=== PATIENT | female | born 1945 | race Caucasian/White ===

== ENCOUNTER → 2018-03-16 | Outpatient (CLI) | payer MEDICARE, MEDICAID | LOC: M CARPUL 17:01 | DX: R06.02 Shortness of breath (principal); R94.2 Abnormal results of pulmonary function studies | CPT/HCPCS: 94010 ==

== ENCOUNTER 2018-05-31 10:30 | Day surgery (SDC) | payer MEDICARE, MEDICAID ==
[2018-05-31] MEDS: NS 1,000 ML IV (10:45)
[2018-05-31] MEDS ORDERED: PROPOFOL 200 MG/20 ML VIAL As Ordered (12:08)
[2018-05-31] MEDS ORDERED: METOPROLOL TART 25 MG TABLET As Ordered (12:16)
[2018-05-31] MEDS: METOPROLOL TART 25 MG TABLET PO (12:19)
== END 2018-05-31 13:55 | disposition home or self-care (01) ==
LOC: M OPP 10:30
DX: D50.9 Iron deficiency anemia, unspecified (principal); D12.4 Benign neoplasm of descending colon; D12.3 Benign neoplasm of transverse colon; D12.2 Benign neoplasm of ascending colon; K57.30 Diverticulosis of large intestine without perforation or abscess without bleeding; I10 Essential (primary) hypertension; E78.5 Hyperlipidemia, unspecified; E11.9 Type 2 diabetes mellitus without complications; K57.32 Diverticulitis of large intestine without perforation or abscess without bleeding; K21.9 Gastro-esophageal reflux disease without esophagitis; R12 Heartburn; M19.90 Unspecified osteoarthritis, unspecified site; L71.9 Rosacea, unspecified; Z78.0 Asymptomatic menopausal state; J45.909 Unspecified asthma, uncomplicated; J44.9 Chronic obstructive pulmonary disease, unspecified; Z88.8 Allergy status to other drugs, medicaments and biological substances; Z79.82 Long term (current) use of aspirin; Z79.899 Other long term (current) drug therapy; Z79.4 Long term (current) use of insulin
CPT/HCPCS: 45385

== ENCOUNTER → 2018-06-09 | Outpatient (CLI) | payer MEDICARE, MEDICAID ==
[~2018-06-09] MED LIST: E-Z-PAQUE 96% w/w SUSP 176GM BTL As Ordered
== END ==
LOC: M RAD 07:48
DX: D50.9 Iron deficiency anemia, unspecified (principal)
CPT/HCPCS: 74250

== ENCOUNTER 2020-12-06 11:03 | Inpatient (IN) | payer MEDICARE, MEDICAID ==
[~2020-12-06] VITALS: Ht 157.5 cm; Wt 80.0 kg
[~2020-12-06 11:03] MED LIST changes: +ADVA45AE INH; +AMLO2.5T3 PO; +ASPI81TA86 PO; +CALC1TAB19 PO; +CALC600T60 PO; -E-Z-PAQUE 96% w/w SUSP 176GM BTL As Ordered; +ESOM1CAP5 PO; +FERR325T3 PO; +FURO40TA2 PO; +GLIP10TA6 PO; +JANU100T PO; +LOSA25TA14 PO; +METF10004 PO; +METO100T5 PO; +METRCRM EXT; +ROSU5TAB5 PO; +TOUJ1.2I SC; +VITA100018 PO
--- OUTSIDE RECORDS SUMMARY | 2020-12-06 11:14 | CCD ---
Author Author [facility] Organization [facility] Address Unknown Phone Unavailable Support Name Relationship Address Phone RE Next Of Kin Unknown Unavailable UE Next Of Kin Unknown Unavailable ANUPAMCharissa EDWARD Next Of Kin [address] [place], [place] [id number] JAK Bo ECON Unknown Unavailable Re-disclosure Warning The records that you are about to access may contain information from federally-assisted alcohol or drug abuse programs. If such information is present, then the following federally mandated warning applies: This information has been disclosed to you from records protected by federal confidentiality rules (42 CFR part 2). The federal rules prohibit you from making any further disclosure of this information unless further disclosure is expressly permitted by the written consent of the person to whom it pertains or as otherwise permitted by 42 CFR part 2. A general authorization for the release of medical or other information is NOT sufficient for this purpose. The Federal rules restrict any use of the information to criminally investigate or prosecute any alcohol or drug abuse patient.The records that you are about to access may contain highly sensitive health information, the redisclosure of which is protected by Article 27-F of the [facility] Public Health law. If you continue you may have access to information: Regarding HIV / AIDS; Provided by facilities licensed or operated by the [facility] Office of Mental Health; or Provided by the [facility] Office for People With Developmental Disabilities. If such information is present, then the following [facility] mandated warning applies: This information has been disclosed to you from confidential records which are protected by state law. State law prohibits you from making any further disclosure of this information without the specific written consent of the person to whom it pertains, or as otherwise permitted by law. Any unauthorized further disclosure in violation of state law may result in a fine or long term sentence or both. A general authorization for the release of medical or other information is NOT sufficient authorization for further disc losure. Family History Family Member Name Family Member Gender Family Member Status Date o f Status Description Data Source(s) Unknown Unknown Problem MEDENT ([facility], ) sister Dx age 75 and again age 81 Immunizations Vaccine Date Status Description Data Source(s) INFLUENZA VACCINE QUADRIVALENT (65 YR UP)/MF59 C.1/PF 08/10/2020 12:00:00 AM EDT completed [facility] Medications Medication Brand Name Start Date Product Form Dose Route Admi nistrative Instructions Pharmacy Instructions Status Indications Reaction Description Data Source(s) 100 mg 11/14/2020 12:00:00 AM EST tablet 90 TAKE ONE TABLET BY MOUTH EVERY DAY TAKE ONE TABLET BY MOUTH EVERY DAY SOLD: 11/16/2020 [facility] BLOOD SUGAR DIAGNOSTIC 10/30/2020 12:00:00 AM EST strip 200 TEST TWO TIMES A DAY DIRECTED TEST TWO TIMES A DAY DIRECTED SOLD: 10/31/2020 [facility] ALCOHOL ANTISEPTIC PADS 10/30/2020 12:00:00 AM EST pads, med icated 100 USE DIRECTED TWO TIMES A DAY USE DIRECTED TWO TIMES A DAY SOLD: 10/31/2020 [facility] 10 mg 10/29/2020 12:00:00 AM EST tablet extended release 24hr 180 TAKE ONE TABLET BY MOUTH TWICE A DAY TAKE ONE TABLET BY MOUTH TWICE A DAY SOLD: 10/31/2020 [facility] LANCETS 09/28/2020 12:00:00 AM EST misc 100 TEST TWO TIMES A DAY TEST TWO TIMES A DAY SOLD: 09/30/2020 [facility] LANCETS 09/28/2020 12:00:00 AM EST misc 100 TEST TWO TIMES A DAY TEST TWO TIMES A DAY SOLD: 11/16/2020 [facility] 40 mg 09/17/2020 12:00:00 AM EST tablet 90 TAKE ONE TABLET BY MOUTH EVERY DAY TAKE ONE TABLET BY MOUTH EVERY DAY SOLD: 09/20/2020 [facility] 5 mg 09/17/2020 12:00:00 AM EST tablet 90 TAKE ONE TABLET BY MOUTH EVERY DAY TAKE ONE TABLET BY MOUTH EVERY DAY SOLD: 09/20/2020 [facility] Esomeprazole 40 MG Delayed Release Oral Capsule ESOMEPRAZOLE MAGNESIUM 09/17/2020 12:00:00 AM EST capsule,delayed release(DR/EC) 90 TAKE ONE CAPSULE BY MOUTH EVERY DAY TAKE ONE CAPSULE BY MOUTH EVERY DAY SOLD: 09/20/2020 [facility] 25 mg 08/02/2020 12:00:00 AM EDT tablet 90 TAKE ONE TABLET BY MOUTH EVERY DAY TAKE ONE TABLET BY MOUTH EVERY DAY SOLD: 10/31/2020 [facility] 25 mg 08/02/2020 12:00:00 AM EDT tablet 90 TAKE ONE TABLET BY MOUTH EVERY DAY TAKE ONE TABLET BY MOUTH EVERY DAY SOLD: 08/04/2020 [facility] 325 mg (65 mg iron) 08/02/2020 12:00:00 AM EDT tablet, delayed release (DR/EC) 90 TAKE ONE TABLET BY MOUTH EVERY DAY TAKE ONE TABL ET BY MOUTH EVERY DAY SOLD: 10/31/2020 [facility] 325 mg (65 mg iron) 08/02/2020 12:00:00 AM EDT tablet, delayed release (DR/EC) 90 TAKE ONE TABLET BY MOUTH EVERY DAY TAKE ONE TABL ET BY MOUTH EVERY DAY SOLD: 08/04/2020 [facility] Metformin hydrochloride 1000 MG Oral Tablet 1,000 mg METFORM IN HCL 07/24/2020 12:00:00 AM EDT tablet 180 TAKE ONE TABLET BY MOUTH TWICE A DAY TAKE ONE TABLET BY MOUTH TWICE A DAY SOLD: 07/27/2020 [facility] 100 mg 07/24/2020 12:00:00 AM EDT tablet 180 TAKE ONE TABLET BY MOUTH TWICE A DAY TAKE ONE TABLET BY MOUTH TWICE A DAY SOLD: 10/23/2020 [facility] 100 mg 07/24/2020 12:00:00 AM EDT tablet 180 TAKE ONE TABLET BY MOUTH TWICE A DAY TAKE ONE TABLET BY MOUTH TWICE A DAY SOLD: 07/27/2020 [facility] Metformin hydrochloride 1000 MG Oral Tablet 1,000 mg METFORM IN HCL 07/24/2020 12:00:00 AM EDT tablet 180 TAKE ONE TABLET BY MOUTH TWICE A DAY TAKE ONE TABLET BY MOUTH TWICE A DAY SOLD: 10/23/2020 [facility] 2.5 mg 07/18/2020 12:00:00 AM EDT tablet 90 TAKE ONE TABLET BY MOUTH EVERY DAY TAKE ONE TABLET BY MOUTH EVERY DAY SOLD: 10/23/2020 [facility] 2.5 mg 07/18/2020 12:00:00 AM EDT tablet 90 TAKE ONE TABLET BY MOUTH EVERY DAY TAKE ONE TABLET BY MOUTH EVERY DAY SOLD: 07/19/2020 [facility] 115-21 mcg/actuation 06/18/2020 12:00:00 AM EDT HFA aerosol inhaler 36 INHALE TWO PUFFS BY MOUTH TWICE A DAY INHALE TWO PUFFS BY MOUTH TWICE A DAY SOLD: 06/21/2020 [facility] 115-21 mcg/actuation 06/18/2020 12:00:00 AM EDT HFA aerosol inhaler 36 INHALE TWO PUFFS BY MOUTH TWICE A DAY INHALE TWO PUFFS BY MOUTH TWICE A DAY SOLD: 10/09/2020 [facility] 100 mg 05/22/2020 12:00:00 AM EDT tablet 90 TAKE ONE TABLET BY MOUTH EVERY DAY TAKE ONE TABLET BY MOUTH EVERY DAY SOLD: 05/23/2020 [facility] 100 mg 05/22/2020 12:00:00 AM EDT tablet 90 TAKE ONE TABLET BY MOUTH EVERY DAY TAKE ONE TABLET BY MOUTH EVERY DAY SOLD: 08/21/2020 [facility] 300 unit/mL (1.5 mL) 05/11/2020 12:00:00 AM EDT insulin pen 4 INJECT 10 UNITS UNDER THE SKIN AT BEDTIME INJECT 10 UNITS UNDER THE SKIN AT BEDTIME SOLD: 09/11/2020 [facility] 300 unit/mL (1.5 mL) 05/11/2020 12:00:00 AM EDT insulin pen 4 INJECT 10 UNITS UNDER THE SKIN AT BEDTIME INJECT 10 UNITS UNDER THE SKIN AT BEDTIME SOLD: 05/13/2020 [facility] 10 mg 05/01/2020 12:00:00 AM EDT tablet extended release 24hr 180 TAKE ONE TABLET BY MOUTH TWICE A DAY TAKE ONE TABLET BY MOUTH TWICE A DAY SOLD: 08/04/2020 [facility] 10 mg 05/01/2020 12:00:00 AM EDT tablet extended release 24hr 180 TAKE ONE TABLET BY MOUTH TWICE A DAY TAKE ONE TABLET BY MOUTH TWICE A DAY SOLD: 05/02/2020 [facility] BLOOD SUGAR DIAGNOSTIC 04/10/2020 12:00:00 AM EDT strip 200 TEST TWO TIMES A DAY DIRECTED TEST TWO TIMES A DAY DIRECTED SOLD: 07/19/2020 [facility] BLOOD SUGAR DIAGNOSTIC 04/10/2020 12:00:00 AM EDT strip 200 TEST TWO TIMES A DAY DIRECTED TEST TWO TIMES A DAY DIRECTED SOLD: 04/11/2020 [facility] Esomeprazole 40 MG Delayed Release Oral Capsule ESOMEPRAZOLE MAGNESIUM 03/19/2020 12:00:00 AM EDT capsule,delayed release(DR/EC) 90 TAKE ONE CAPSULE BY MOUTH EVERY DAY TAKE ONE CAPSULE BY MOUTH EVERY DAY SOLD: 06/21/2020 [facility] 5 mg 03/19/2020 12:00:00 AM EDT tablet 90 TAKE ONE TABLET BY MOUTH EVERY DAY TAKE ONE TABLET BY MOUTH EVERY DAY SOLD: 03/20/2020 [facility] Rosuvastatin calcium 5 MG Oral Tablet ROSUVASTATIN CALCIUM 0 03/19/2020 12:00:00 AM EDT tablet 90 TAKE ONE TABLET BY MOUTH [place] DAY TAKE ONE TABLET BY MOUTH EVERY DAY SOLD: 06/21/2020 [facility] 40 mg 03/19/2020 12:00:00 AM EDT capsule,delayed release (DR/EC) 90 TAKE ONE CAPSULE BY MOUTH EVERY DAY TAKE ONE CAPSULE BY MOUTH EVERY DAY SOLD: 03/20/2020 [facility] 40 mg 03/19/2020 12:00:00 AM EDT tablet 90 TAKE ONE TABLET BY MOUTH EVERY DAY TAKE ONE TABLET BY MOUTH EVERY DAY SOLD: 03/20/2020 [facility] 40 mg 03/19/2020 12:00:00 AM EDT tablet 90 TAKE ONE TABLET BY MOUTH EVERY DAY TAKE ONE TABLET BY MOUTH EVERY DAY SOLD: 06/21/2020 [facility] 03/05/2020 12:00:00 AM EDT misc 200 TEST TWO TIMES A DAY DIRECTED TEST TWO TIMES A DAY DIRECTED SOLD: 06/21/2020 [facility] LANCETS 03/05/2020 12:00:00 AM EDT misc 200 TEST TWO TIMES A DAY DIRECTED TEST TWO TIMES A DAY DIRECTED SOLD: 03/06/2020 [facility] 32 gauge x 5/32" 02/06/2020 12:00:00 AM EDT needle 100 USE DIRECTED ONCE DAILY USE DIRECTED ONCE DAILY SOLD: 08/21/2020 [facility] 32 gauge x 5/32" 02/06/2020 12:00:00 AM EDT needle 100 USE DIRECTED ONCE DAILY USE DIRECTED ONCE DAILY SOLD: 12/02/2020 [facility] 32 gauge x 5/32" 02/06/2020 12:00:00 AM EDT needle 100 USE DIRECTED ONCE DAILY USE DIRECTED ONCE DAILY SOLD: 05/13/2020 [facility] 32 gauge x 5/32" 02/06/2020 12:00:00 AM EDT needle 100 USE DIRECTED ONCE DAILY USE DIRECTED ONCE DAILY SOLD: 02/08/2020 [facility] 325 mg (65 mg iron) 02/03/2020 12:00:00 AM EDT tablet 90 TAKE ONE TABLET BY MOUTH EVERY DAY TAKE ONE TABLET BY MOUTH EVERY DAY SOLD: 05/02/2020 [facility] 325 mg (65 mg iron) 02/03/2020 12:00:00 AM EDT tablet 90 TAKE ONE TABLET BY MOUTH EVERY DAY TAKE ONE TABLET BY MOUTH EVERY DAY SOLD: 02/03/2020 [facility] 1 % 02/02/2020 12:00:00 AM EDT gel with pump 165 APPLY A THIN LAYER TO AFFECTED AREA(S) ONCE DAILY NEEDED APPLY A THIN LAYER TO AFFECTED AREA(S) ONCE DAILY NEEDED SOLD: 02/03/2020 [facility] 25 mg 02/01/2020 12:00:00 AM EDT tablet 90 TAKE ONE TABLET BY MOUTH EVERY DAY TAKE ONE TABLET BY MOUTH EVERY DAY SOLD: 05/02/2020 [facility] 25 mg 02/01/2020 12:00:00 AM EDT tablet 90 TAKE ONE TABLET BY MOUTH EVERY DAY TAKE ONE TABLET BY MOUTH EVERY DAY SOLD: 02/03/2020 [facility] 2.5 mg 01/16/2020 12:00:00 AM EDT tablet 90 TAKE ONE TABLET BY MOUTH EVERY DAY TAKE ONE TABLET BY MOUTH EVERY DAY SOLD: 04/20/2020 [facility] 100 mg 01/16/2020 12:00:00 AM EDT tablet 180 TAKE ONE TABLET BY MOUTH TWICE A DAY TAKE ONE TABLET BY MOUTH TWICE A DAY SOLD: 04/20/2020 [facility] 100 mg 01/16/2020 12:00:00 AM EDT tablet 180 TAKE ONE TABLET BY MOUTH TWICE A DAY TAKE ONE TABLET BY MOUTH TWICE A DAY SOLD: 01/18/2020 [facility] 1,000 mg 01/16/2020 12:00:00 AM EDT tablet 180 TAKE ONE TABLET BY MOUTH TWICE A DAY TAKE ONE TABLET BY MOUTH TWICE A DAY SOLD: 04/20/2020 [facility] 2.5 mg 01/16/2020 12:00:00 AM EDT tablet 90 TAKE ONE TABLET BY MOUTH EVERY DAY TAKE ONE TABLET BY MOUTH EVERY DAY SOLD: 01/18/2020 [facility] 1,000 mg 01/16/2020 12:00:00 AM EDT tablet 180 TAKE ONE TABLET BY MOUTH TWICE A DAY TAKE ONE TABLET BY MOUTH TWICE A DAY SOLD: 01/18/2020 [facility] ALCOHOL ANTISEPTIC PADS 11/21/2019 12:00:00 AM EST pads, med icated 100 USE TWO TIMES A DAY DIRECTED USE TWO TIMES A DAY DIRECTED SOLD: 07/19/2020 [facility] 115-21 mcg/actuation 11/21/2019 12:00:00 AM EST HFA aerosol inhaler 12 INHALE TWO PUFFS BY MOUTH TWICE A DAY INHALE TWO PUFFS BY MOUTH TWICE A DAY SOLD: 03/06/2020 [facility] 115-21 mcg/actuation 11/21/2019 12:00:00 AM EST HFA aerosol inhaler 12 INHALE TWO PUFFS BY MOUTH TWICE A DAY INHALE TWO PUFFS BY MOUTH TWICE A DAY SOLD: 02/03/2020 [facility] 100 mg 11/21/2019 12:00:00 AM EST tablet 90 TAKE ONE TABLET BY MOUTH EVERY DAY TAKE ONE TABLET BY MOUTH EVERY DAY SOLD: 11/23/2019 [facility] ALCOHOL ANTISEPTIC PADS 11/21/2019 12:00:00 AM EST pads, med icated 100 USE TWO TIMES A DAY DIRECTED USE TWO TIMES A DAY DIRECTED SOLD: 05/13/2020 [facility] 115-21 mcg/actuation 11/21/2019 12:00:00 AM EST HFA aerosol inhaler 12 INHALE TWO PUFFS BY MOUTH TWICE A DAY INHALE TWO PUFFS BY MOUTH TWICE A DAY SOLD: 11/23/2019 [facility] 115-21 mcg/actuation 11/21/2019 12:00:00 AM EST HFA aerosol inhaler 12 INHALE TWO PUFFS BY MOUTH TWICE A DAY INHALE TWO PUFFS BY MOUTH TWICE A DAY SOLD: 12/22/2019 [facility] ALCOHOL ANTISEPTIC PADS 11/21/2019 12:00:00 AM EST pads, med icated 100 USE TWO TIMES A DAY DIRECTED USE TWO TIMES A DAY DIRECTED SOLD: 09/11/2020 [facility] ALCOHOL ANTISEPTIC PADS 11/21/2019 12:00:00 AM EST pads, med icated 100 USE TWO TIMES A DAY DIRECTED USE TWO TIMES A DAY DIRECTED SOLD: 01/18/2020 [facility] ALCOHOL ANTISEPTIC PADS 11/21/2019 12:00:00 AM EST pads, med icated 100 USE TWO TIMES A DAY DIRECTED USE TWO TIMES A DAY DIRECTED SOLD: 03/20/2020 [facility] ALCOHOL ANTISEPTIC PADS 11/21/2019 12:00:00 AM EST pads, med icated 100 USE TWO TIMES A DAY DIRECTED USE TWO TIMES A DAY DIRECTED SOLD: 11/23/2019 [facility] 100 mg 11/21/2019 12:00:00 AM EST tablet 90 TAKE ONE TABLET BY MOUTH EVERY DAY TAKE ONE TABLET BY MOUTH EVERY DAY SOLD: 02/16/2020 [facility] 115-21 mcg/actuation 11/21/2019 12:00:00 AM EST HFA aerosol inhaler 12 INHALE TWO PUFFS BY MOUTH TWICE A DAY INHALE TWO PUFFS BY MOUTH TWICE A DAY SOLD: 05/13/2020 [facility] 115-21 mcg/actuation 11/21/2019 12:00:00 AM EST HFA aerosol inhaler 12 INHALE TWO PUFFS BY MOUTH TWICE A DAY INHALE TWO PUFFS BY MOUTH TWICE A DAY SOLD: 04/10/2020 [facility] 10 mg 10/26/2019 12:00:00 AM EST tablet extended release 24hr 180 TAKE ONE TABLET BY MOUTH TWO TIMES A DAY TAKE ONE TABLET BY MOUTH TWO TIMES A DAY SOLD: 02/03/2020 [facility] 10 mg 10/26/2019 12:00:00 AM EST tablet extended release 24hr 180 TAKE ONE TABLET BY MOUTH TWO TIMES A DAY TAKE ONE TABLET BY MOUTH TWO TIMES A DAY SOLD: 10/28/2019 [facility] 40 mg 09/22/2019 12:00:00 AM EST capsule,delayed release (DR/EC) 90 TAKE ONE CAPSULE BY MOUTH EVERY DAY TAKE ONE CAPSULE BY MOUTH EVERY DAY SOLD: 12/22/2019 [facility] 5 mg 09/22/2019 12:00:00 AM EST tablet 90 TAKE ONE TABLET BY MOUTH EVERY DAY TAKE ONE TABLET BY MOUTH EVERY DAY SOLD: 12/22/2019 [facility] 40 mg 09/22/2019 12:00:00 AM EST tablet 90 TAKE ONE TABLET BY MOUTH EVERY DAY TAKE ONE TABLET BY MOUTH EVERY DAY SOLD: 12/22/2019 [facility] BLOOD SUGAR DIAGNOSTIC 09/21/2019 12:00:00 AM EST strip 200 USE TWO TIMES A DAY DIRECTED USE TWO TIMES A DAY DIRECTED SOLD: 01/02/2020 [facility] LANCETS 08/10/2019 12:00:00 AM EDT misc 200 TEST TWO TIMES A DAY DIRECTED TEST TWO TIMES A DAY DIRECTED SOLD: 11/23/2019 [facility] 325 mg (65 mg iron) 08/08/2019 12:00:00 AM EDT tablet 30 TAKE ONE TABLET BY MOUTH EVERY DAY TAKE ONE TABLET BY MOUTH EVERY DAY SOLD: 11/05/2019 [facility] 325 mg (65 mg iron) 08/08/2019 12:00:00 AM EDT tablet 30 TAKE ONE TABLET BY MOUTH EVERY DAY TAKE ONE TABLET BY MOUTH EVERY DAY SOLD: 10/07/2019 [facility] 325 mg (65 mg iron) 08/08/2019 12:00:00 AM EDT tablet 30 TAKE ONE TABLET BY MOUTH EVERY DAY TAKE ONE TABLET BY MOUTH EVERY DAY SOLD: 12/11/2019 [facility] 325 mg (65 mg iron) 08/08/2019 12:00:00 AM EDT tablet 30 TAKE ONE TABLET BY MOUTH EVERY DAY TAKE ONE TABLET BY MOUTH EVERY DAY SOLD: 01/06/2020 [facility] Losartan Potassium 25 MG Oral Tablet LOSARTAN POTASSIUM 07/2019 12:00:00 AM EDT tablet 90 TAKE ONE TABLET BY MOUTH [place] TAKE ONE TABLET BY MOUTH EVERY DAY SOLD: 10/28/2019 [facility] 100 mg 07/21/2019 12:00:00 AM EDT tablet 180 TAKE ONE TABLET BY MOUTH TWICE A DAY TAKE ONE TABLET BY MOUTH TWICE A DAY SOLD: 10/20/2019 [facility] 1,000 mg 07/21/2019 12:00:00 AM EDT tablet 180 TAKE ONE TABLET BY MOUTH TWICE A DAY TAKE ONE TABLET BY MOUTH TWICE A DAY SOLD: 10/20/2019 [facility] 2.5 mg 07/21/2019 12:00:00 AM EDT tablet 90 TAKE ONE TABLET BY MOUTH EVERY DAY TAKE ONE TABLET BY MOUTH EVERY DAY SOLD: 10/20/2019 [facility] 100 mg 05/24/2019 12:00:00 AM EDT tablet 30 TAKE ONE TABLET BY MOUTH EVERY DAY TAKE ONE TABLET BY MOUTH EVERY DAY SOLD: 10/20/2019 [facility] 115-21 mcg/actuation 05/23/2019 12:00:00 AM EDT HFA aerosol inhaler 12 INHALE TWO PUFFS BY MOUTH TWICE A DAY INHALE TWO PUFFS BY MOUTH TWICE A DAY SOLD: 10/20/2019 [facility] ALCOHOL ANTISEPTIC PADS 03/02/2019 12:00:00 AM EDT pads, med icated 100 APPLY DIRECTED TWO TIMES A DAY APPLY DIRECTED TWO TIMES A DAY SOLD: 10/07/2019 [facility] 32 gauge x 5/32" 11/08/2018 12:00:00 AM EST needle 90 USE 1 ONCE DAILY USE 1 ONCE DAILY SOLD: 11/05/2019 [facility] Insurance Providers Payer name Policy type / Coverage type Policy ID Covered alliance party ID Covered alliance party's relationship to rangel Policy Rangel Plan Information EMEDNY [id number] SP [id number] MEDICARE [id number] SP [id number] MEDICAID [id number] SP [id number] MEDICARE [id number] SP [id number] MEDICAID [id number] SP [id number] MEDICARE [id number] SP [id number] D Medicaid [facility] Part B [id number] Self [id number] [place] Primary [id number] Self [id number] MEDICAID [id number] SP [id number] MEDICARE [id number] SP [id number] A MEDICARE C [id number] S [id number] D MEDICAID M [id number] MEDICAID [id number] SP [id number] MEDICARE COMPLETE-UHC O [id number] S [id number]
--- OUTSIDE RECORDS SUMMARY | 2020-12-06 11:48 | CCD ---
Author Author [facility] Organization [facility] Address Unknown Phone Unavailable Support Name Relationship Address Phone RE Next Of Kin Unknown Unavailable UE Next Of Kin Unknown Unavailable ANUPAMCharissa EDWARD Next Of Kin [address] [place], [place] [id number] JAK Bo ECON Unknown Unavailable Re-disclosure Warning [...] is protected by Article 27-F of the [facility] Public Health law. If you continue you may have access to information: Regarding HIV / AIDS; Provided by facilities licensed or operated by the [facility] Office of Mental Health; or Provided by the [facility] Office for People With Developmental Disabilities. If such information is present, then the following [facility] mandated warning applies: This information has been [...] law may result in a fine or skilled nursing sentence or both. A general authorization for the release of medical or other information is NOT sufficient authorization for further disc losure. Family History Family Member Name Family Member Gender Family Member Status Date o f Status Description Data Source(s) Unknown Unknown Problem MEDENT ([facility], ) sister Dx age 75 and [...] BY MOUTH TWICE A DAY SOLD: 10/09/2020 [facility] 100 mg 05/22/2020 12:00:00 AM [...] MOUTH EVERY DAY SOLD: 06/21/2020 [facility] 03/05/2020 12:00:00 AM EDT misc 200 TEST [...] MOUTH TWO TIMES A DAY SOLD: 10/28/2019 [facility] 40 mg 09/22/2019 12:00:00 AM [...] to rangel Policy Rangel Plan Information EMEDNY [id number] SP [id number] MEDICARE [id number] SP [id number] MEDICAID [id number] SP [id number] MEDICARE [id number] SP [id number] [id number] MEDICAID [id number] SP [id number] MEDICARE [id number] SP [id number] D Medicaid [facility] Part B [id number] Self [id number] [place] Primary [id number] Self [id number] MEDICAID [id number] SP [id number] MEDICARE [id number] SP [id number] MEDICARE C [id number] S [id number] D MEDICAID M [id number] S [id number] MEDICAID [id number] SP [id number] MEDICARE COMPLETE-UHC O [id number] S [id number]
[2020-12-06 11:54] LABS: VENOUS BASE EXCESS -2.1 (-2.0-2.0); VENOUS HCO3 23.3 MEQ/L (23.0-27.0); VENOUS O2 SATURATION 55.5 % (60.0-80.0); VENOUS PARTIAL PRESSURE CO2 42.5 mmHg (38.0-50.0); VENOUS PARTIAL PRESSURE O2 31.6 mmHg (30.0-50.0); VENOUS PH 7.357 UNITS (7.330-7.430); VENOUS STANDARD HCO3 21.8 MEQ/L; VENOUS TOTAL CO2 24.6 MEQ/L (24.0-28.0)
[2020-12-06 11:58] LABS: HEMATOCRIT 37.8 % (36.0-47.0); HEMOGLOBIN 12.4 g/dl (12.0-15.5); MEAN CORPUSCULAR HEMOGLOBIN 31.6 pg (27.0-33.0); MEAN CORPUSCULAR HGB CONC 32.8 g/dl (32.0-36.5); MEAN CORPUSCULAR VOLUME 96.2 fl (80.0-96.0); PLATELET COUNT, AUTOMATED 172 10^3/uL (150-450); RED BLOOD COUNT 3.93 10^6/uL (4.00-5.40); WHITE BLOOD COUNT 7.6 10^3/uL (4.0-10.0)
[2020-12-06 12:09] LABS: INR 1.16; PROTHROMBIN TIME 15.1 SECONDS (12.5-14.3)
[2020-12-06 12:10] LABS: PARTIAL THROMBOPLASTIN TIME 28.9 SECONDS (24.2-38.5)
[2020-12-06 12:12] LABS: D-DIMER QUANT 2171.62 ng/ml (<500)
--- NOTE | 2020-12-06 12:23 | REP ---
INDICATION: DYSPNEA/COUGH. COMPARISON: Comparison chest x-ray February 16, 2018. TECHNIQUE: Portable upright AP chest radiograph. FINDINGS: The heart is mildly enlarged. Monitoring electrodes and oxygen delivery tubing are seen. There is some fissural thickening in the minor fissure but no royal pleural effusion is seen. Interstitial markings are prominent diffusely. This is essentially unchanged. This may be chronic interstitial fibrosis.. IMPRESSION: Mild cardiac enlargement. Prominent interstitial markings question fibrosis. No focal infiltrate.. <Electronically signed by Juan Jose Daly > 12/06/20 [id number]
[2020-12-06 12:25] LABS: ANISOCYTOSIS 1+; ATYPICAL LYMPH 3 % (0-5); BASOPHILS 1 % (0-1); HYPOCHROMASIA 1+; LYMPHOCYTES 10 % (16-44); METAMYELOCYTES 1 % (0-0); MONOCYTES 6 % (0-5); NEUTROPHILS 77 % (28-66); PLATELET CLUMPS SMALL AMT; PLATELET ESTIMATE NORMAL (NORMAL); POLYCHROMASIA 1+
[2020-12-06 12:26] LABS: ALBUMIN 3.5 GM/DL (3.2-5.2); ALT/SGPT 16 U/L (12-78); BILIRUBIN,DIRECT 0.3 MG/DL (0.0-0.2); BILIRUBIN,TOTAL 0.8 MG/DL (0.2-1.0); BLOOD UREA NITROGEN 16 MG/DL (7-18); C REACTIVE PROTEIN QUANTITATIV 6.86 MG/DL (0.00-0.30); CALCIUM LEVEL 8.6 MG/DL (8.8-10.2); CARBON DIOXIDE LEVEL 23 MEQ/L (21-32); CHLORIDE LEVEL 103 MEQ/L (98-107); CK-MB VALUE MASS 1.6 NG/ML (<3.6); CPK CREATINE PHOSPHOKINASE 61 U/L (26-192); CREATININE FOR GFR 1.38 MG/DL (0.55-1.30); FERRITIN 173 NG/ML (8-252); GLOMERULAR FILTRATION RATE 39.8 (>39); GLUCOSE, FASTING 208 MG/DL (70-100); LDH LACTATE DEHYDROGENASE 389 U/L (84-246); MB/CK RELATIVE INDEX 2.62 (< OR =4); NT-PRO BNP 732 PG/ML (<125); POTASSIUM SERUM 3.5 MEQ/L (3.5-5.1); SODIUM LEVEL 138 MEQ/L (136-145); THYROXINE (T4) 10.8 UG/DL (4.5-12.0); TROPONIN I < 0.02 NG/ML (< 0.10)
[2020-12-06] MEDS ORDERED: dexameTHASONE 20MG/5ML VIAL (J1100 PER 1MG) IV ONE (13:00)
[2020-12-06 13:03] LABS: ERYTHROCYTE SEDIMENTATION RATE 67 mm/hr (0-30)
--- OUTSIDE RECORDS SUMMARY | 2020-12-06 13:09 | CCD ---
Author Author [facility] Organization [facility] Address Unknown Phone Unavailable Support Name Relationship Address Phone RE Next Of Kin Unknown Unavailable UE Next Of Kin Unknown Unavailable ANUPAMCharissa EDWARD Next Of Kin [address] [place], [place] [id number] JAK Bo ECON Unknown Unavailable Re-disclosure Warning [...] is protected by Article 27-F of the [facility] Public Health law. If you continue you may have access to information: Regarding HIV / AIDS; Provided by facilities licensed or operated by the [facility] Office of Mental Health; or Provided by the [facility] Office for People With Developmental Disabilities. If such information is present, then the following [facility] mandated warning applies: This information has [...] law may result in a fine or residential sentence or both. A general authorization for the release of medical or other information is NOT sufficient authorization for further disc losure. Family History Family Member Name Family Member Gender Family Member Status Date o f Status Description Data Source(s) Unknown Unknown Problem MEDENT ([facility], ) sister Dx age 75 [...] MOUTH EVERY DAY SOLD: 06/21/2020 [facility] 03/05/2020 12:00:00 AM EDT misc 200 TEST [...] type / Coverage type Policy ID Covered republican ID Covered republican's relationship to rangel Policy Rangel Plan Information EMEDNY [id number] SP [id number] MEDICARE [id number] SP [id number] MEDICAID [id number] SP [id number] MEDICARE [id number] SP [id number] MEDICAID [id number] SP [id number] MEDICARE [id number] SP [id number] D Medicaid [facility] Part B [id number] Self [id number] [place] Primary [id number] Self [id number] MEDICAID [id number] SP [id number] MEDICARE [id number] SP [id number] MEDICARE C [id number] S [id number] D MEDICAID M [id number] S [id number] MEDICAID [id number] SP [id number] MEDICARE COMPLETE-UHC O [id number] S [id number]
[2020-12-06] MEDS ORDERED: DEXTROSE 50% 50 ML SYRINGE IV PRN (14:00)
[2020-12-06] MEDS ORDERED: GLUCOSE 4GM CHEW TABLET PO PRN (14:00)
[2020-12-06] MEDS ORDERED: GLUCAGON INJ 1MG VIAL SC PRN (14:00)
[2020-12-06] MEDS ORDERED: NS 1,000 ML IV ONE (14:00)
--- NOTE | 2020-12-06 14:02 | HPEPDOC ---
[facility] Medical History & Physical Date of Admission Dec 06, 2020 Date of Service: Dec 06, 2020 History and Physical CHIEF COMPLAINT: Muscle aches, shortness of breath for 3 days HISTORY OF PRESENT ILLNESS: 75-year-old female Full code with past medical history significant for type II diabetes, hypertension, asthma, tubular adenoma, diverticulosis, iron deficiency anemia, presents to emergency room with 3 day history of worsening shortness of breath, dyspnea on exertion, unable to walk from the living room to the bedroom since Thursday. Patient was exposed to her son who is coronavirus 19 positive on routine testing for an operation in [place] . Patient complains of generalized headache, took some [employer]. Tylenol for a high fever that subsided on its own. She complains of cough productive of green sputum, and generalized weakness and muscle aches. Patient lives by herself but her son who lives down the road checks up on her. Patient denies any loss of taste loss of smell, nausea, vomiting, abdominal pain, constipation. Despite using her Advair, Patient has had worsening shortness of breath prompting her to come to the emergency room. She denies chest pain, pressure, tightness, lightheadedness, di zziness, bright red blood per rectum, melena, or black tarry stools. In the emergency room she was found to have hypoxia 78% oxygen saturation on room air, chest x-ray showed fibrosis, coronavirus Positive. Hospitalist was called to admit for coronavirus infection. PAST MEDICAL HISTORY: diabetes, hypertension, asthma, tubular adenoma, colonic polyps, diverticulosis, iron deficiency anemia, PAST SURGICAL HISTORY: Resection of a cyst, tubal ligation, colonoscopy by Dr. Rodriguez 2017 with repeat colonoscopy in 5 years SOCIAL HISTORY: Lives alone. Her son is her healthcare proxy Wisam Hanson [phone]. CODE STATUS is full code. Previously smoked cigarettes 2 packs a day for 20 years, quit in 1988, retired, previously worked in farming. Occasional alcohol use only during Robert and the holidays. Denies recreational drug use FAMILY HISTORY: . Father age 63 with GA in her artery disease, mother had stomach cancer and at the age of 73 ALLERGIES: Please see below. REVIEW OF SYSTEMS: 12 point review of systems negative aside from positive findings in HPI HOME MEDICATIONS: Please see below. PHYSICAL EXAMINATION: VITAL SIGNS: See below GENERAL APPEARANCE: Positive use of respiratory accessory muscles and conversational dyspnea. No nasal flaring. Moist mucous membranes. No pallor, icterus or jaundice HEENT: Face is symmetric. Tongue is midline. No JVD, thyromegaly or cervical lymphadenopathy diabetes, hypertension, asthma, tubular adenoma, diverticulosis, iron deficiency anemia, CARDIOVASCULAR: S1, S2, regular rate and rhythm. Nondisplaced point of maximal i mpulse no carotid bruit LUNGS: Diminished bilateral crackles ABDOMEN: Soft, nontender, nondistended, positive bowel sounds. No rebound or guarding EXTREMITIES: No cyanosis or clubbing LABORATORY DATA: See below. IMAGING: INDICATION: DYSPNEA/COUGH. COMPARISON: Comparison chest x-ray February 16, 2018. TECHNIQUE: Portable upright AP chest radiograph. FINDINGS: The heart is mildly enlarged. Monitoring electrodes and oxygen delivery tubing are seen. There is some fissural thickening in the minor fissure but no royal pleural effusion is seen. Interstitial markings are prominent diffusely. This is essentially unchanged. This may be chronic interstitial fibrosis.. IMPRESSION: Mild cardiac enlargement. Prominent interstitial markings question fibrosis. No focal infiltrate.. MICROBIOLOGY: Please see below. ASSESSMENT: 75-year-old female Full code with past medical history significant for type II diabetes, hypertension, asthma, tubular adenoma, diverticulosis, iron deficiency anemia, presents to emergency room with 3 day history of worsening shortness of breath, dyspnea on exertion, unable to walk from the living room to the bedroom since Thursday. Patient was exposed to her son who is coronavirus 19 positive on routine testing for an operation in [place] . Patient complains of generalized headache, took some [employer]. Tylenol for a high fever that subsided on its own. She complains of cough productive of green sputum, and generalized weakness and muscle aches. Patient lives by herself but her son who lives down the road checks up on her. Patient denies any loss of taste loss of smell, nausea, vomiting, abdominal pain, constipation. Despite using her Advair, Patient has had worsening shortness of breath prompting her to come to the emergency room. She denies chest pain, pressure, tightness, lightheadedness, dizziness, bright red blood per rectum, melena, or black tarry stools. In the emergency room she was found to have hypoxia 78% oxygen saturation on room air, chest x-ray showed fibrosis, coronavirus Positive. Hospitalist was called to admit for coronavirus infection. Coronavirus infection -Patient will be admitted to the covid unit. IV Remdesevir IV Decadron. Supplemental oxygen to keep oxygen saturations greater than 94%. cycle inflammatory markers, aspirin and Lovenox -If pro-calcitonin is elevated, Empiric treatment with antibiotics, ceftriaxone, doxycycline and obtain sputum culture results. Avoid nebulizers. Continue home inhalers. Activity as tolerated. Hypertension -Resume home meds Asthma -No wheezing on examination. May continue home inhalers Iron deficiency anemia with history of diverticulosis and tubular adenomatous sigmoid polyps -No acute indication for RBC transfusion. Outpatient follow-up with joint sealer, Dr. Rodriguez in 2 years with repeat colonoscopy Type 2 diabetes -Consistent carbohydrate diet. Insulin sliding scale Acute kidney injury -Trial of IV fluids. Repeat basic metabolic panel. Avoid nephrotoxins. Renally dose all medications Lactic acidosis -IV fluids. Serial lactic acid until its normal. -if pro-calcitonin is elevated, start him. Antibiotic therapy DVT prophylaxis. Lovenox Diet consistent carbohydrate diet 2 g sodium CODE STATUS full code Vital Signs Vital Signs Date Time Temp Pulse Resp B/P (MAP) Pulse Ox O2 Delivery O2 Flow Rate FiO2 12/06/20 11:47 12/06/20 11:28 20 78 Room Air 12/06/20 11:03 98.5 87 Laboratory Data Labs 24H Laboratory Tests 2 12/06/20 11:42: Neutrophils (%) (Auto) , Nucleated Red Blood Cells % (auto) 0.0, Neutrophils 77H, Band Neutrophils 2, Lymphocytes (Manual) 10L, Monocytes (Manual) 6H, Basophils (Manual) 1, Metamyelocytes 1H, Atypical Lymphocytes 3, Polychromasia 1+, Hypochromasia 1+, Anisocytosis 1+, Macrocytosis 1+, Platelet Estimate NORMAL, Clumped Platelets SMALL AMT, Erythrocyte Sedimentation Rate 67H, Prothrombin Time 15.1H, Prothromb Time International Ratio 1.16, Activated Partial Thromboplast Time 28.9, Fibrinogen 534H, D-Dimer, Quantitative 2171.62H, Blood Gas Bicarbonate Standard 21.8, Venous Blood pH 7.357, Venous Blood Partial Pressure CO2 42.5, Venous Blood Partial Pressure O2 31.6, Venous Blood Total Carbon Dioxide 24.6, Venous Blood HCO3 23.3, Venous Blood Oxygen Saturation 55.5L, Venous Blood Base Excess -2.1L, Anion Gap 12, Glomerular Filtration Rate 39.8, Lactic Acid Level 3.0*H, Calcium Level 8.6L, Ferritin 173, Total Bilirubin 0.8, Direct Bilirubin 0.3H, Aspartate Amino Transf (AST/SGOT) 18, Alanine Aminotransferase (ALT/SGPT) 16, Alkaline Phosphatase 58, Lactate Dehydrogenase 389H, Total Creatine Kinase 61, Creatine Kinase MB 1.6, Creatine Kinase MB Relative Index 2.62, Troponin I < 0.02, C-Reactive Protein, Quantitative 6.86H, WW-Xhu-H-Type Natriuretic Peptide 732H, Total Protein 7.0, Albumin 3.5, Albumin/Globulin Ratio 1.0L, Thyroid Stimulating Hormone (TSH) 2.120, Thyroxine (T4) 10.8 CBC/BMP Laboratory Tests 12/06/20 11:42 Microbiology Microbiology 12/06/20 Blood Culture, Received Pending 12/06/20 Blood Culture, Received Pending 12/06/20 Respiratory Virus Panel (PCR) ([facility]) - Final, Complete SARS-CoV-2 (COVID 19) Home Medications Scheduled Amlodipine Besylate (Amlodipine Besylate) 2.5 Mg Tab, 2.5 MG PO DAILY Aspirin (Aspir 81) 81 Mg Tab, 81 MG PO DAILY for pain Calcium Carbonate/Vitamin D3 (Calcium 600-Vit D3 800 Tablet) 1 Tab Tab, 1 TAB PO BID Cyanocobalamin (Vitamin B-12) (Vitamin B-12) 1,000 Mcg Tab, 1,000 MCG PO DAILY Esomeprazole Magnesium (Esomeprazole Magnesium) 40 Mg Cap, 40 MG PO DAILY Ferrous Sulfate (Ferrous Sulfate) 325 Mg Tab, 325 MG PO DAILY Fluticasone Propion/Salmeterol (Advair Hfa 45-21 Mcg Inhaler) 1 Aer Aer, 2 PUFF INH BID Furosemide (Furosemide) 40 Mg Tab, 40 MG PO DAILY Glipizide (Glipizide) 10 Mg Tab, 10 MG PO BID Insulin Glargine,Hum.rec.anlog (Toujeo Solostar) 300 Unit/Ml Inj, 20 UNIT SC QHS Losartan Potassium (Losartan Potassium) 25 Mg Tab, 25 MG PO DAILY Metformin HCl (Metformin HCl) 1,000 Mg Tab, 1,000 MG PO BID Metoprolol Tartrate (Metoprolol Tartrate) 100 Mg Tab, 100 MG PO BID Rosuvastatin Calcium (Rosuvastatin Calcium) 5 Mg Tab, 5 MG PO DAILY for high cholesterol Sitagliptin Phosphate (Januvia) 100 Mg Tab, 100 MG PO DAILY Scheduled PRN Metronidazole (Metronidazole) 0.75 % Cre, 1 % EXT ASDIRECTED PRN for ROSACEA Allergies Coded Allergies: canagliflozin (Verified Allergy, Severe, CAUSED DIFFICULTY BREATHING AND ELEVATED GLUCOSE, 12/06/20) A-FIB/CHADSVASC A-FIB History Current/History of A-Fib/PAF?: No Current PO Anticoag Therapy: No Age/Risk Factor Scoring CHADSVASC: CHADSVASC Response (Comments) Value Age Risk Factor Age 65-74 years old 1 Gender Risk Factor Female 1 Hx of CHF No 0 Hx of HTN No 0 Hx of Stroke/TIA/or VTE No 0 Hx of Diabetes Yes 1 Hx of Vascular Disease No 0 Total 3 Treatment Treatment ordered: NONE LANDON PÉREZ MD Dec 06, 2020 14:02
[2020-12-06] MEDS ORDERED: ADVA115A INH (14:05)
[2020-12-06] MEDS ORDERED: ASPI1TAB8 PO (14:05)
[2020-12-06] MEDS ORDERED: GLIP1TAB11 PO (14:05)
[2020-12-06] MEDS ORDERED: METR1GEL5 TOP (14:05)
[2020-12-06 14:54] VITALS: BP 144/73
[2020-12-06] MEDS ORDERED: REMDESIVIR 200 MG in NS 250 ML IV ONE (15:00)
[2020-12-06 15:25] VITALS: O2SAT 92
[2020-12-06] MEDS ORDERED: SODIUM CHLORIDE 0.9% INJ 10 ML SYR IV ONE (17:00)
[2020-12-06 17:08] LABS: CALCIUM LEVEL 8.1 MG/DL (8.8-10.2); CREATININE FOR GFR 1.17 MG/DL (0.55-1.30); GLOMERULAR FILTRATION RATE 48.1 (>39); POTASSIUM SERUM 3.5 MEQ/L (3.5-5.1)
[2020-12-06] MEDS: HumaLOG INSULIN (NovoLOG) PER UNIT SC SCH ×2 (17:40→20:08)
[2020-12-06 20:00] VITALS: BP 133/63; O2SAT 90
[2020-12-07] VITALS (9 sets, daily range): BP systolic 129–151; BP diastolic 60–70; O2SAT 91–96
[2020-12-07 06:45] LABS: HEMATOCRIT 37.1 % (36.0-47.0); MEAN CORPUSCULAR HEMOGLOBIN 31.3 pg (27.0-33.0); MEAN CORPUSCULAR HGB CONC 32.3 g/dl (32.0-36.5); MEAN CORPUSCULAR VOLUME 96.9 fl (80.0-96.0); PLATELET COUNT, AUTOMATED 162 10^3/uL (150-450); RED BLOOD COUNT 3.83 10^6/uL (4.00-5.40); WHITE BLOOD COUNT 5.9 10^3/uL (4.0-10.0)
[2020-12-07 07:10] LABS: CALCIUM LEVEL 8.9 MG/DL (8.8-10.2); CREATININE FOR GFR 1.11 MG/DL (0.55-1.30); GLOMERULAR FILTRATION RATE 51.2 (>39); MAGNESIUM LEVEL 1.9 MG/DL (1.8-2.4); POTASSIUM SERUM 3.2 MEQ/L (3.5-5.1)
[2020-12-07 07:11] LABS: ATYPICAL LYMPH 2 % (0-5); LYMPHOCYTES 16 % (16-44); MONOCYTES 5 % (0-5); NEUTROPHILS 77 % (28-66); PLATELET ESTIMATE NORMAL (NORMAL)
--- NOTE | 2020-12-07 08:15 | ECGEPIP ---
[facility] - ED Test Date: 2020-12-06 Pat Name: MADELIN BO Department: Room: - Gender: Female Malt Specifications Control Assistant: URIEL : 1945 Requested By: ANDREW Sánchez Order Number: [id number] Reading MD: Sammi Garcia Measurements Intervals [place] Rate: 86 P: 4 MS: 140 QRS: -5 QRSD: 90 T: 13 QT: 388 QTc: 464 Interpretive Statements Normal sinus rhythm RSR' or QR pattern in V1 suggests right ventricular conduction delay ST & T wave abnormality, consider anterior ischemia vs artifact baseline artifact may affect interpretation No prior Electronically Signed on 12-07-2020 8:14:49 EST by Sammi Garcia
[2020-12-07] MEDS: dexameTHASONE 4 MG/ML 1ML VIAL (J1100 PER 1MG) IV SCH (08:29)
[2020-12-07] MEDS: HumaLOG INSULIN (NovoLOG) PER UNIT SC SCH ×4 (08:29→20:50)
[2020-12-07] MEDS: ASPIRIN 81MG ENTERIC TABLET PO SCH (08:29)
[2020-12-07] MEDS ORDERED: ENOXAPARIN 40MG/0.4ML SYRINGE (J1650 PER 10MG) SC SCH (09:00)
[2020-12-07] MEDS ORDERED: POTASSIUM CHLORIDE 10 MEQ SR TABLET PO ONE (09:30)
[2020-12-07] MEDS: REMDESIVIR 100 MG in NS 250 ML IV SCH (15:08)
[2020-12-07] MEDS: SODIUM CHLORIDE 0.9% INJ 10 ML SYR IV SCH (15:09)
--- NOTE | 2020-12-07 19:17 | IPNPDOC ---
Date Seen The patient was seen on 12/07/20. Progress Note SUBJECTIVE: 75-year-old female with a history of type 2 diabetes, hypertension, asthma, tubular adenoma, diverticulosis and deficiency anemia presented to the emergency room with 2 days or worsening shortness of breath, dyspnea exertion and fatigue. Patient tested positive for coronavirus on routine testing for surgery. She was exposed to a virus from her son. To [facility] for management of hypoxia secondary to "with infection. Patient was seen and examined at bedside. Doing well events overnight. Saturating 93% on high flow nasal cannula at 8 L/m. Chest mattress of breath, nausea, vomiting, diarrhea. OBJECTIVE PHYSICAL EXAMINATION: VITAL SIGNS: please see below General: NAD, comfortable HEENT: PERRLA, EOMI, sclerae clear Neck: supple, normal ROM, no JVD Respiratory: reduced air entry bilaterally at bases, no wheeze, no rales, no crackles CVS: RRR, normal S1, S2, no murmurs Abdo: soft, no masses, no hepatosplenomegaly, BS+, no rebound tenderness Extremities: no edema, pulses 2+ MSK: no joint deformities, normal ROM Neuro: no focal neuro deficits, moving all 4 extremities, CN2-12 intact. Strength 5/5 in all 4 extremities. No nystagmus. Psych: calm, cooperative, AAO x 3 LABORATORY DATA, IMAGING STUDIES, MICROBIOLOGY: Please see below. Echocardiogram: . DVT prophylaxis ordered?: increase lovenox to 0.5 mg/kg q12h ASSESSMENT AND PLAN: PROBLEMS: Coronavirus infection -Patient will be admitted to the covid unit. IV Remdesevir IV Decadron. Supplemental oxygen to keep oxygen saturations greater than 94%. cycle inflammatory markers, aspirin and Lovenox -If pro-calcitonin is elevated, Empiric treatment with antibiotics, ceftriaxone, doxycycline and obtain sputum culture results. Avoid nebulizers. Continue home inhalers. Activity as tolerated. Hypertension -Resume home meds Asthma -No wheezing on examination. May continue home inhalers Iron deficiency anemia with history of diverticulosis and tubular adenomatous sigmoid polyps -No acute indication for RBC transfusion. Outpatient follow-up with power grader operator, Dr. Rodriguez in 2 years with repeat colonoscopy Type 2 diabetes -Consistent carbohydrate diet. Insulin sliding scale Acute kidney injury -Trial of IV fluids. Repeat basic metabolic panel. Avoid nephrotoxins. Renally dose all medications Lactic acidosis -IV fluids. Serial lactic acid until its normal. -if pro-calcitonin is elevated, start him. Antibiotic therapy DVT prophylaxis. Lovenox Diet consistent carbohydrate diet 2 g sodium VS, I&O, 24H, Fishbone Vital Signs/I&O Vital Signs Date Time Temp Pulse Resp B/P (MAP) Pulse Ox O2 Delivery O2 Flow Rate FiO2 12/07/20 16:00 96 High Flow Cannula 8.0 12/07/20 16:00 96.3 78 18 142/61 (88) I&O- Last 24 Hours up to 6 AM 12/07/20 06:00 Intake Total 1690 ml Output Total 1100 ml Balance 590 ml Laboratory Data 24H LABS Laboratory Tests 2 12/06/20 19:47: Bedside Glucose (Misc Panel) 292H 12/07/20 06:22: Neutrophils (%) (Auto) , Nucleated Red Blood Cells % (auto) 0.0, Neutrophils 77H, Lymphocytes (Manual) 16, Monocytes (Manual) 5, Atypical Lymphocytes 2, Macrocytosis 1+, Platelet Estimate NORMAL, Anion Gap 9, Glomerular Filtration Rate 51.2, Calcium Level 8.9, Magnesium Level 1.9 12/07/20 12:40: Bedside Glucose (Misc Panel) 352H 12/07/20 16:18: Bedside Glucose (Misc Panel) 348H CBC/BMP Laboratory Tests 12/07/20 06:22 Microbiology Microbiology 12/06/20 Blood Culture - Preliminary, Resulted No growth after 24 hours . All specim... 12/06/20 Blood Culture - Preliminary, Resulted No growth after 24 hours . All specim... 12/06/20 Respiratory Virus Panel (PCR) ([facility]) - Final, Complete SARS-CoV-2 (COVID 19) SARABJIT RODRIGUEZ MD Dec 07, 2020 19:17
[2020-12-07] MEDS: ADVAIR HFA 115/21MCG INHALER INH SCH (20:27)
[2020-12-07] MEDS: METOPROLOL TARTRATE 100 MG TAB PO SCH (20:47)
[2020-12-07] MEDS ORDERED: LEVEMIR (INSULIN DETEMIR) 1 UNITS/0.01ML SC SCH (21:00)
[2020-12-07] MEDS ORDERED: ENOXAPARIN 100MG/1ML SYRINGE (J1650 PER 10MG) SC SCH (21:00)
[2020-12-08 05:10] VITALS: BP 141/85
[2020-12-08 06:50] LABS: HEMATOCRIT 36.1 % (36.0-47.0); HEMOGLOBIN 11.6 g/dl (12.0-15.5); MEAN CORPUSCULAR HEMOGLOBIN 31.4 pg (27.0-33.0); MEAN CORPUSCULAR HGB CONC 32.1 g/dl (32.0-36.5); MEAN CORPUSCULAR VOLUME 97.8 fl (80.0-96.0); PLATELET COUNT, AUTOMATED 207 10^3/uL (150-450); RED BLOOD COUNT 3.69 10^6/uL (4.00-5.40); WHITE BLOOD COUNT 12.6 10^3/uL (4.0-10.0)
[2020-12-08 07:08] LABS: INR 1.28; PROTHROMBIN TIME 16.3 SECONDS (12.5-14.3)
[2020-12-08 07:09] LABS: PARTIAL THROMBOPLASTIN TIME 30.5 SECONDS (24.2-38.5)
[2020-12-08] MEDS: ADVAIR HFA 115/21MCG INHALER INH SCH ×2 (07:21→19:23)
[2020-12-08 07:35] LABS: ALT/SGPT 15 U/L (12-78); BILIRUBIN,DIRECT 0.1 MG/DL (0.0-0.2); BILIRUBIN,TOTAL 0.4 MG/DL (0.2-1.0); BLOOD UREA NITROGEN 24 MG/DL (7-18); CALCIUM LEVEL 8.9 MG/DL (8.8-10.2); CARBON DIOXIDE LEVEL 24 MEQ/L (21-32); CHLORIDE LEVEL 111 MEQ/L (98-107); CPK CREATINE PHOSPHOKINASE 59 U/L (26-192); CREATININE FOR GFR 1.03 MG/DL (0.55-1.30); FERRITIN 123 NG/ML (8-252); GLOMERULAR FILTRATION RATE 55.8 (>39); GLUCOSE, FASTING 187 MG/DL (70-100); LDH LACTATE DEHYDROGENASE 332 U/L (84-246); NT-PRO BNP 519 PG/ML (<125); POTASSIUM SERUM 3.4 MEQ/L (3.5-5.1); SODIUM LEVEL 143 MEQ/L (136-145); TOTAL PROTEIN 6.9 GM/DL (6.4-8.2); TROPONIN I < 0.02 NG/ML (< 0.10)
[2020-12-08 07:44] LABS: ATYPICAL LYMPH 6 % (0-5); LYMPHOCYTES 10 % (16-44); MONOCYTES 9 % (0-5); NEUTROPHILS 75 % (28-66)
[2020-12-08 07:45] LABS: PLATELET ESTIMATE NORMAL (NORMAL)
[2020-12-08 07:46] LABS: ANISOCYTOSIS 1+; POLYCHROMASIA 1+
[2020-12-08 08:00] VITALS: O2SAT 93
[2020-12-08] MEDS: ENOXAPARIN 40MG/0.4ML SYRINGE (J1650 PER 10MG) SC SCH ×2 (08:54→20:53)
[2020-12-08] MEDS: ROSUVASTATIN 10 MG TAB (CRESTOR) PO SCH (08:55)
[2020-12-08] MEDS: FERROUS SULFATE 325MG TAB PO SCH (08:55)
[2020-12-08] MEDS: HumaLOG INSULIN (NovoLOG) PER UNIT SC SCH ×4 (08:55→20:54)
[2020-12-08] MEDS: ASPIRIN 81MG ENTERIC TABLET PO SCH (08:55)
[2020-12-08] MEDS: dexameTHASONE 4 MG/ML 1ML VIAL (J1100 PER 1MG) IV SCH (08:56)
[2020-12-08] MEDS: METOPROLOL TARTRATE 100 MG TAB PO SCH ×2 (08:57→21:02)
[2020-12-08] MEDS: FUROSEMIDE 40 MG TAB PO SCH (08:57)
[2020-12-08] MEDS: LOSARTAN 25 MG TAB PO SCH (08:57)
[2020-12-08] MEDS ORDERED: POTASSIUM CHLORIDE 10 MEQ SR TABLET PO ONE (10:00)
[2020-12-08 14:00] VITALS: BP 151/89
[2020-12-08] MEDS: REMDESIVIR 100 MG in NS 250 ML IV SCH (14:09)
[2020-12-08] MEDS: SODIUM CHLORIDE 0.9% INJ 10 ML SYR IV SCH (14:09)
--- NOTE | 2020-12-08 15:27 | IPNPDOC ---
Date Seen The patient was seen on 12/08/20. Progress Note SUBJECTIVE: 75-year-old female with a history of type 2 diabetes, hypertension, asthma, tubular adenoma, diverticulosis and deficiency anemia presented to the emergency room with 2 days or worsening shortness of breath, dyspnea exertion and fatigue. Patient tested positive for coronavirus on routine testing for surgery. She was exposed to a virus from her son. To [facility] for management of hypoxia secondary to "with infection. Patient was seen and examined at bedside. Doing well events overnight. Saturating 93% on high flow nasal cannula at 8 L/m. Chest mattress of breath, nausea, vomiting, diarrhea. OBJECTIVE PHYSICAL EXAMINATION: VITAL SIGNS: please see below General: NAD, comfortable HEENT: PERRLA, EOMI, sclerae clear Neck: supple, normal ROM, no JVD Respiratory: reduced air entry bilaterally at bases, no wheeze, no rales, no crackles CVS: RRR, normal S1, S2, no murmurs Abdo: soft, no masses, no hepatosplenomegaly, BS+, no rebound tenderness Extremities: no edema, pulses 2+ MSK: no joint deformities, normal ROM Neuro: no focal neuro deficits, moving all 4 extremities, CN2-12 intact. Strength 5/5 in all 4 extremities. No nystagmus. Psych: calm, cooperative, AAO x 3 LABORATORY DATA, IMAGING STUDIES, MICROBIOLOGY: Please see below. DVT prophylaxis ordered?: increase lovenox to 0.5 mg/kg q12h ASSESSMENT AND PLAN: PROBLEMS: COVID-19 infection: -Patient will be admitted to the covid unit. -Remdesevir Day 3 -Dexamethasone 6 mg IV Day 3 -Supplemental O2 to maintain O2 saturation > 92 IV Remdesevir IV Decadron. Supplemental oxygen to keep oxygen saturations greater than 94%. cycle inflammatory markers, aspirin and Lovenox - procalcitonin is 0.05, no cough, no fevers. WBC elevation could be attributed to dexamethasone use. - will not start abx at this time. - combivent prn Hypertension -Resume home meds - losartan 25 mg daily Asthma -No wheezing on examination. May continue home inhalers Iron deficiency anemia with history of diverticulosis and tubular adenomatous sigmoid polyps -No acute indication for RBC transfusion. Outpatient follow-up with [place] stroenterologist, Dr. Rodriguez in 2 years with repeat colonoscopy Type 2 diabetes -Consistent carbohydrate diet. Insulin sliding scale - increase levemir to 20 units qhs, worsening hyperglycemia 2/2 steroid use Acute kidney injury - Resolved s/p IVF, Cr normalized - Avoid nephrotoxins. Renally dose all medications Lactic acidosis -IV fluids. Serial lactic acid until its normal. -if pro-calcitonin is elevated, start him. Antibiotic therapy DVT prophylaxis. Lovenox 0.5 mg/kg q12h Diet: consistent carbohydrate diet 2 g sodium VS, I&O, 24H, Fishbone Vital Signs/I&O Vital Signs Date Time Temp Pulse Resp B/P (MAP) Pulse Ox O2 Delivery O2 Flow Rate FiO2 12/08/20 14:00 96.5 63 19 151/89 (109) 91 Nasal Cannula 2.0 I&O- Last 24 Hours up to 6 AM 12/08/20 05:59 Intake Total 1380 ml Output Total 1225 ml Balance 155 ml Laboratory Data 24H LABS Laboratory Tests 2 12/07/20 16:18: Bedside Glucose (Misc Panel) 348H 12/07/20 19:43: Bedside Glucose (Misc Panel) 289H 12/08/20 06:16: Neutrophils (%) (Auto) , Nucleated Red Blood Cells % (auto) 0.0, Neutrophils 75H, Lymphocytes (Manual) 10L, Monocytes (Manual) 9H, Atypical Lymphocytes 6H, Polychromasia 1+, Anisocytosis 1+, Macrocytosis 1+, Platelet Estimate NORMAL, Prothrombin Time 16.3H, Prothromb Time International Ratio 1.28, Activated Partial Thromboplast Time 30.5, Fibrinogen 449, Anion Gap 8, Glomerular Filtration Rate 55.8, Calcium Level 8.9, Magnesium Level 2.0, Ferritin 123, Total Bilirubin 0.4, Direct Bilirubin 0.1, Aspartate Amino Transf (AST/SGOT) 10, Alanine Aminotransferase (ALT/SGPT) 15, Alkaline Phosphatase 64, Lactate Dehydro genase 332H, Total Creatine Kinase 59, Troponin I < 0.02, IW-[id number]-G-Type Natriuretic Peptide 519H, Total Protein 6.9, Albumin 3.0L, Albumin/Globulin Ratio 0.8L 12/08/20 11:21: Bedside Glucose (Misc Panel) 302H CBC/BMP Laboratory Tests 12/08/20 06:16 Microbiology Microbiology 12/06/20 Blood Culture - Preliminary, Resulted No Growth after 48 hours. All Specime... 12/06/20 Blood Culture - Preliminary, Resulted No Growth after 48 hours. All Specime... 12/06/20 Respiratory Virus Panel (PCR) ([facility]) - Final, Complete SARS-CoV-2 (COVID 19) SARABJIT RODRIGUEZ MD Dec 08, 2020 15:27
[2020-12-08 16:00] VITALS: O2SAT 93
[2020-12-08 19:30] VITALS: BP 144/87
[2020-12-08 20:00] VITALS: O2SAT 91
[2020-12-08] MEDS: LEVEMIR (INSULIN DETEMIR) 1 UNITS/0.01ML SC SCH (20:55)
[2020-12-09] VITALS (11 sets, daily range): BP systolic 131–173; BP diastolic 60–80; O2SAT 85–95
[2020-12-09 07:03] LABS: HEMATOCRIT 37.4 % (36.0-47.0); HEMOGLOBIN 11.6 g/dl (12.0-15.5); MEAN CORPUSCULAR HEMOGLOBIN 30.4 pg (27.0-33.0); MEAN CORPUSCULAR VOLUME 98.2 fl (80.0-96.0); PLATELET COUNT, AUTOMATED 224 10^3/uL (150-450); RED BLOOD COUNT 3.81 10^6/uL (4.00-5.40); WHITE BLOOD COUNT 12.7 10^3/uL (4.0-10.0)
[2020-12-09 07:21] LABS: CALCIUM LEVEL 8.5 MG/DL (8.8-10.2); CREATININE FOR GFR 1.03 MG/DL (0.55-1.30); GLOMERULAR FILTRATION RATE 55.8 (>39); POTASSIUM SERUM 3.3 MEQ/L (3.5-5.1)
[2020-12-09] MEDS: ADVAIR HFA 115/21MCG INHALER INH SCH ×2 (07:27→20:07)
[2020-12-09 07:40] LABS: ATYPICAL LYMPH 6 % (0-5); LYMPHOCYTES 11 % (16-44); MONOCYTES 4 % (0-5); NEUTROPHILS 79 % (28-66)
[2020-12-09 07:41] LABS: ANISOCYTOSIS 1+; PLATELET ESTIMATE NORMAL (NORMAL)
[2020-12-09] MEDS: HumaLOG INSULIN (NovoLOG) PER UNIT SC SCH ×4 (07:47→21:40)
--- NOTE | 2020-12-09 08:28 | REP ---
INDICATION: COVID. COMPARISON: 12/06/2020, 02/16/2018 TECHNIQUE: AP portable seated FINDINGS: This portable chest is somewhat lordotic projection which limits posterior lower lung zone evaluation in more than standard portable chest. There is cardiomegaly with left atrial and ventricular enlargement. Some underlying diffuse interstitial fibrotic changes are noted. Minor fissure is a visible which may reflect a small amount of fluid but no blunting of the CP angle seen. Increased peripheral markings are noted with this underlying fibrosis but no dense consolidation with air bronchograms. Calcified aortic arch without gross aneurysm. Airway midline. Bones unchanged. IMPRESSION: 1. Cardiomegaly with left atrial and ventricular enlargement no royal edema or definite effusion. 2. No dense consolidation. There is underlying fibrosis with some pattern of increased peripheral markings present. Some fissural thickening for the right minor fissure but no gross effusion identified. Somewhat limited lordotic portable exam. <Electronically signed by Russ Rodriguez > 12/09/20 [id number]
[2020-12-09] MEDS: ROSUVASTATIN 10 MG TAB (CRESTOR) PO SCH (08:55)
[2020-12-09] MEDS: FUROSEMIDE 40 MG TAB PO SCH (08:55)
[2020-12-09] MEDS: dexameTHASONE 4 MG/ML 1ML VIAL (J1100 PER 1MG) IV SCH (08:55)
[2020-12-09] MEDS: ASPIRIN 81MG ENTERIC TABLET PO SCH (08:55)
[2020-12-09] MEDS: FERROUS SULFATE 325MG TAB PO SCH (08:55)
[2020-12-09] MEDS: POTASSIUM CHLORIDE 10 MEQ SR TABLET PO SCH ×2 (08:56→21:36)
[2020-12-09] MEDS: ENOXAPARIN 40MG/0.4ML SYRINGE (J1650 PER 10MG) SC SCH ×2 (08:56→21:36)
[2020-12-09] MEDS: METOPROLOL TARTRATE 100 MG TAB PO SCH ×2 (08:57→21:35)
[2020-12-09] MEDS: LOSARTAN 25 MG TAB PO SCH (08:57)
[2020-12-09] MEDS: REMDESIVIR 100 MG in NS 250 ML IV SCH (14:24)
[2020-12-09] MEDS: SODIUM CHLORIDE 0.9% INJ 10 ML SYR IV SCH (14:25)
[2020-12-09] MEDS: LEVEMIR (INSULIN DETEMIR) 1 UNITS/0.01ML SC SCH (21:37)
--- NOTE | 2020-12-09 22:28 | IPNPDOC ---
Date Seen The patient was seen on 12/09/20. Progress Note SUBJECTIVE: 75-year-old female with a history of type 2 diabetes, hypertension, asthma, tubular adenoma, diverticulosis and deficiency anemia presented to the emergency room with 2 days or worsening shortness of breath, dyspnea exertion and fatigue. Patient tested positive for coronavirus on routine testing for surgery. She was exposed to a virus from her son. To [facility] for management of hypoxia secondary to "with infection. Patient was seen and examined at bedside. Doing well events overnight. Saturating 92% on high flow nasal cannula at 2 L/m, but desaturates on walking Chest mattress of breath, nausea, vomiting, diarrhea. OBJECTIVE PHYSICAL EXAMINATION: VITAL SIGNS: please see below General: NAD, comfortable HEENT: PERRLA, EOMI, sclerae clear Neck: supple, normal ROM, no JVD Respiratory: reduced air entry bilaterally at bases, no wheeze, no rales, no crackles CVS: RRR, normal S1, S2, no murmurs Abdo: soft, no masses, no hepatosplenomegaly, BS+, no rebound tenderness Extremities: no edema, pulses 2+ MSK: no joint deformities, normal ROM Neuro: no focal neuro deficits, moving all 4 extremities, CN2-12 intact. Strength 5/5 in all 4 extremities. No nystagmus. Psych: calm, cooperative, AAO x 3 LABORATORY DATA, IMAGING STUDIES, MICROBIOLOGY: Please see below. DVT prophylaxis ordered?: increase lovenox to 0.5 mg/kg q12h ASSESSMENT AND PLAN: PROBLEMS: COVID-19 infection: -Patient will be admitted to the covid unit. -Remdesevir Day 4 -Dexamethasone 6 mg IV Day 4 -Supplemental O2 to maintain O2 saturation > 92 IV Remdesevir IV Decadron. Supplemental oxygen to keep oxygen saturations greater than 94%. cycle inflammatory markers, aspirin and Lovenox - procalcitonin is 0.05, no cough, no fevers. WBC elevation could be attributed to dexamethasone use. - lovenox 0.5 mg/kg q12h - will not start abx at this time. - blood cx negative prelim at 72 hrs - combivent prn Hypertension -Resume home meds - losartan 25 mg daily Asthma -No wheezing on examination. May continue home inhalers Iron deficiency anemia with history of diverticulosis and tubular adenomatous sigmoid polyps -No acute indication for RBC transfusion. Outpatient follow-up with quality tech, Dr. Rodriguez in 2 years with repeat colonoscopy Type 2 diabetes -Consistent carbohydrate diet. Insulin sliding scale - increase levemir to 20 units qhs, worsening hyperglycemia 2/2 steroid use Acute kidney injury - Resolved s/p IVF, Cr normalized - Avoid nephrotoxins. Renally dose all medications Lactic acidosis -IV fluids. Serial lactic acid until its normal. -if pro-calcitonin is elevated, start him. Antibiotic therapy DVT prophylaxis. Lovenox 0.5 mg/kg q12h Diet: consistent carbohydrate diet 2 g sodium VS, I&O, 24H, Fishbone Vital Signs/I&O Vital Signs Date Time Temp Pulse Resp B/P (MAP) Pulse Ox O2 Delivery O2 Flow Rate FiO2 12/09/20 21:41 2.0 12/09/20 21:35 56 173/79 12/09/20 20:08 14 12/09/20 20:00 95.3 91 Nasal Cannula I&O- Last 24 Hours up to 6 AM 12/09/20 06:00 Intake Total 1590 ml Output Total 1550 ml Balance 40 ml Laboratory Data 24H LABS Laboratory Tests 2 12/09/20 06:43: Neutrophils (%) (Auto) , Nucleated Red Blood Cells % (auto) 0.2H, Neutrophils 79H, Lymphocytes (Manual) 11L, Monocytes (Manual) 4, Atypical Lymphocytes 6H, Anisocytosis 1+, Macrocytosis 1+, Platelet Estimate NORMAL, Anion Gap 7L, Glomerular Filtration Rate 55.8, Calcium Level 8.5L, Magnesium Level 2.0 12/09/20 11:34: Bedside Glucose (Misc Panel) 293H 12/09/20 16:25: Bedside Glucose (Misc Panel) 420H 12/09/20 20:22: Bedside Glucose (Misc Panel) 369H CBC/BMP Laboratory Tests 12/09/20 06:43 Microbiology Microbiology 12/06/20 Blood Culture - Preliminary, Resulted No Growth after 72 hours. All specime... 12/06/20 Blood Culture - Preliminary, Resulted No Growth after 72 hours. All specime... 12/06/20 Respiratory Virus Panel (PCR) ([facility]) - Final, Complete SARS-CoV-2 (COVID 19) SARABJIT RODRIGUEZ MD Dec 09, 2020 22:28
[2020-12-10] VITALS (8 sets, daily range): BP systolic 143–172; BP diastolic 64–84; O2SAT 90–92
[2020-12-10 06:54] LABS: BASO % 0.1 % (0.0-1.0); EOS % 0.1 % (0.0-3.0); HEMATOCRIT 37.6 % (36.0-47.0); LYMPH # 1.8 10^3/uL (1.5-5.0); LYMPH % 17.7 % (24.0-44.0); MEAN CORPUSCULAR HEMOGLOBIN 31.3 pg (27.0-33.0); MEAN CORPUSCULAR HGB CONC 31.9 g/dl (32.0-36.5); MEAN CORPUSCULAR VOLUME 98.2 fl (80.0-96.0); MONO % 9.9 % (2.0-8.0); NEUTROPHILS # 7.2 10^3/uL (1.5-8.5); NEUTROPHILS % 71.4 % (36.0-66.0); PLATELET COUNT, AUTOMATED 208 10^3/uL (150-450); RED BLOOD COUNT 3.83 10^6/uL (4.00-5.40); WHITE BLOOD COUNT 10.1 10^3/uL (4.0-10.0)
[2020-12-10 07:07] LABS: INR 1.26; PROTHROMBIN TIME 16.1 SECONDS (12.5-14.3)
[2020-12-10 07:08] LABS: PARTIAL THROMBOPLASTIN TIME 30.9 SECONDS (24.2-38.5)
[2020-12-10 07:20] LABS: ALBUMIN 3.1 GM/DL (3.2-5.2); ALT/SGPT 20 U/L (12-78); BILIRUBIN,DIRECT 0.2 MG/DL (0.0-0.2); BILIRUBIN,TOTAL 0.5 MG/DL (0.2-1.0); BLOOD UREA NITROGEN 25 MG/DL (7-18); CALCIUM LEVEL 8.5 MG/DL (8.8-10.2); CARBON DIOXIDE LEVEL 25 MEQ/L (21-32); CHLORIDE LEVEL 112 MEQ/L (98-107); CPK CREATINE PHOSPHOKINASE 28 U/L (26-192); FERRITIN 107 NG/ML (8-252); GLOMERULAR FILTRATION RATE 57.7 (>39); GLUCOSE, FASTING 209 MG/DL (70-100); LDH LACTATE DEHYDROGENASE 295 U/L (84-246); MAGNESIUM LEVEL 2.1 MG/DL (1.8-2.4); NT-PRO BNP 713 PG/ML (<125); SODIUM LEVEL 145 MEQ/L (136-145); TOTAL PROTEIN 6.6 GM/DL (6.4-8.2); TROPONIN I < 0.02 NG/ML (< 0.10)
[2020-12-10] MEDS: ADVAIR HFA 115/21MCG INHALER INH SCH (07:28)
[2020-12-10 08:28] LABS: D-DIMER QUANT 1383.37 ng/ml (<500)
[2020-12-10] MEDS: HumaLOG INSULIN (NovoLOG) PER UNIT SC SCH ×3 (08:56→16:52)
[2020-12-10] MEDS: ENOXAPARIN 40MG/0.4ML SYRINGE (J1650 PER 10MG) SC SCH (08:56)
[2020-12-10] MEDS: dexameTHASONE 4 MG/ML 1ML VIAL (J1100 PER 1MG) IV SCH (08:56)
[2020-12-10] MEDS: FUROSEMIDE 40 MG TAB PO SCH (08:58)
[2020-12-10] MEDS: FERROUS SULFATE 325MG TAB PO SCH (08:58)
[2020-12-10] MEDS: ASPIRIN 81MG ENTERIC TABLET PO SCH (08:58)
[2020-12-10] MEDS: POTASSIUM CHLORIDE 10 MEQ SR TABLET PO SCH (08:59)
[2020-12-10] MEDS: ROSUVASTATIN 10 MG TAB (CRESTOR) PO SCH (08:59)
[2020-12-10] MEDS: LOSARTAN 25 MG TAB PO SCH (09:00)
[2020-12-10] MEDS: METOPROLOL TARTRATE 100 MG TAB PO SCH (09:00)
--- NOTE | 2020-12-10 12:49 | IPNPDOC ---
Date Seen The patient was seen on 12/10/20. Progress Note SUBJECTIVE: 75-year-old female with a history of type 2 diabetes, hypertension, asthma, tubular adenoma, diverticulosis and deficiency anemia presented to the emergency room with 2 days or worsening shortness of breath, dyspnea exertion and fatigue. Patient tested positive for coronavirus on routine testing for surgery. She was exposed to a virus from her son. Presented to [facility] for management of hypoxia secondary to covid-19infection. Patient was seen and examined at bedside. D OBJECTIVE PHYSICAL EXAMINATION: VITAL SIGNS: please see below General: NAD, comfortable HEENT: PERRLA, EOMI, sclerae clear Neck: supple, normal ROM, no JVD Respiratory: reduced air entry bilaterally at bases, no wheeze, no rales, no crackles CVS: RRR, normal S1, S2, no murmurs Abdo: soft, no masses, no hepatosplenomegaly, BS+, no rebound tenderness Extremities: no edema, pulses 2+ MSK: no joint deformities, normal ROM Neuro: no focal neuro deficits, moving all 4 extremities, CN2-12 intact. Strength 5/5 in all 4 extremities. No nystagmus. Psych: calm, cooperative, AAO x 3 LABORATORY DATA, IMAGING STUDIES, MICROBIOLOGY: Please see below. DVT prophylaxis ordered?: increase lovenox to 0.5 mg/kg q12h ASSESSMENT AND PLAN: PROBLEMS: COVID-19 infection: -Patient will be admitted to the covid unit. -Remdesevir Day 4 -Dexamethasone 6 mg IV Day 4 -Supplemental O2 to maintain O2 saturation > 92 IV Remdesevir IV Decadron. Supplemental oxygen to keep oxygen saturations greater than 94%. cycle inflammatory markers, aspirin and Lovenox - procalcitonin is 0.05, no cough, no fevers. WBC elevation could be attributed to dexamethasone use. - lovenox 0.5 mg/kg q12h - will not start abx at this time. - blood cx negative prelim at 72 hrs - combivent prn Hypertension -Resume home meds - losartan 25 mg daily Asthma -No wheezing on examination. May continue home inhalers Iron deficiency anemia with history of diverticulosis and tubular adenomatous sigmoid polyps -No acute indication for RBC transfusion. Outpatient follow-up with floorman, Dr. Rodriguez in 2 years with repeat colonoscopy Type 2 diabetes -Consistent carbohydrate diet. Insulin sliding scale - increase levemir to 20 units qhs, worsening hyperglycemia 2/2 steroid use Acute kidney injury - Resolved s/p IVF, Cr normalized - Avoid nephrotoxins. Renally dose all medications Lactic acidosis -IV fluids. Serial lactic acid until its normal. -if pro-calcitonin is elevated, start him. Antibiotic therapy DVT prophylaxis. Lovenox 0.5 mg/kg q12h Diet: consistent carbohydrate diet 2 g sodium VS, I&O, 24H, Fishbone Vital Signs/I&O Vital Signs Date Time Temp Pulse Resp B/P (MAP) Pulse Ox O2 Delivery O2 Flow Rate FiO2 12/10/20 09:00 63 143/64 12/10/20 05:00 4.0 12/10/20 04:00 92 Nasal Cannula 12/10/20 04:00 95.1 18 I&O- Last 24 Hours up to 6 AM 12/10/20 05:59 Intake Total 1210 ml Output Total 2100 ml Balance -890 ml Laboratory Data 24H LABS Laboratory Tests 2 12/09/20 16:25: Bedside Glucose (Misc Panel) 420H 12/09/20 20:22: Bedside Glucose (Misc Panel) 369H 12/10/20 04:45: Bedside Glucose (Misc Panel) 202H 12/10/20 06:18: Immature Granulocyte % (Auto) 0.8, Neutrophils (%) (Auto) 71.4H, Lymphocytes (%) (Auto) 17.7L, Monocytes (%) (Auto) 9.9H, Eosinophils (%) (Auto) 0.1, Basophils (%) (Auto) 0.1, Neutrophils # (Auto) 7.2, Lymphocytes # (Auto) 1.8, Monocytes # (Auto) 1.0H, Eosinophils # (Auto) 0.0, Basophils # (Auto) 0.0, Nucleated Red Blood Cells % (auto) 0.0, Prothrombin Time 16.1H, Prothromb Time International Ratio 1.26, Activated Partial Thromboplast Time 30.9, Fibrinogen 375, D-Dimer, Quantitative 1383.37H, Anion Gap 8, Glomerular Filtration Rate 57.7, Calcium Level 8.5L, Magnesium Level 2.1, Ferritin 107, Total Bilirubin 0.5, Direct Bilirubin 0.2, Aspartate Amino Transf (AST/SGOT) 10, Alanine Aminotransferase (ALT/SGPT) 20, Alkaline Phosphatase 64, Lactate Dehydrogenase 295H, Total Creatine Kinase 28, Troponin I < 0.02, AA-Jjs-[id number]-Type Natriuretic Peptide 713H, Total Protein 6.6, Albumin 3.1L, Albumin/Globulin Ratio 0.9L 12/10/20 11:59: Bedside Glucose (Misc Panel) 268H CBC/BMP Laboratory Tests 12/10/20 06:18 Microbiology Microbiology 12/06/20 Blood Culture - Preliminary, Resulted No Growth after 72 hours. All specime... 12/06/20 Blood Culture - Preliminary, Resulted No Growth after 72 hours. All specime... 12/06/20 Respiratory Virus Panel (PCR) ([facility]) - Final, Complete SARS-CoV-2 (COVID 19) SARABJIT RODRIGUEZ MD Dec 10, 2020 12:49
[2020-12-10] MEDS: REMDESIVIR 100 MG in NS 250 ML IV SCH (14:56)
[2020-12-10] MEDS: SODIUM CHLORIDE 0.9% INJ 10 ML SYR IV SCH (15:03)
--- NOTE | 2020-12-10 16:00 | DS.PDOC ---
Discharge Summary General Date of Admission Dec 06, 2020 at 12:52 Date of Discharge 12/10/20 Discharge Summary PROCEDURES PERFORMED DURING STAY: [None]. ADMITTING DIAGNOSES: COVID-19 infection HTN Asthma Iron deficiency anemia Tubular adenomatous polyps in sigmoid DM2 MO Lactic acidosis DISCHARGE DIAGNOSES: COVID-19 infection HTN Asthma Iron deficiency anemia Tubular adenomatous polyps in sigmoid DM2 MO Lactic acidosis COMPLICATIONS/CHIEF COMPLAINT: Covid 19. HISTORY OF PRESENT ILLNESS: 75-year-old female Full code with past medical history significant for type II diabetes, hypertension, asthma, tubular adenoma, diverticulosis, iron deficiency anemia, presents to emergency room with 3 day h istory of worsening shortness of breath, dyspnea on exertion, unable to walk from the living room to the bedroom since Thursday. Patient was exposed to her son who is coronavirus 19 positive on routine testing for an operation in [place] . Patient complains of generalized headache, took some [employer]. Tylenol for a high fever that subsided on its own. She complains of cough productive of green sputum, and generalized weakness and muscle aches. Patient lives by herself but her son who lives down the road checks up on her. Patient denies any loss of taste loss of smell, nausea, vomiting, abdominal pain, constipation. Despite using her Advair, Patient has had worsening shortness of breath prompting her to come to the emergency room. She denies chest pain, pressure, tightness, lightheadedness, dizziness, bright red blood per rectum, melena, or black tarry stools. In the emergency room she was found to have hypoxia 78% oxygen saturation on room air, chest x-ray showed fibrosis, coronavirus Positive. Hospitalist was called to admit for coronavirus infection. HOSPITAL COURSE: -Patient will be admitted to the covid unit. -Remdesevir Day 4 -Dexamethasone 6 mg IV Day 4 -Supplemental O2 to maintain O2 saturation > 92 IV Remdesevir IV Decadron. Supplemental oxygen to keep oxygen saturations greater than 94%. cycle inflammatory markers, aspirin and Lovenox - procalcitonin is 0.05, no cough, no fevers. WBC elevation could be attributed to dexamethasone use. - antibiotic use was not needed - lovenox 0.5 mg/kg q12h - blood cx negative - combivent prn Hypertension -Resume home meds - 25 mg daily Asthma -No wheezing on examination. May continue home inhalers Iron deficiency anemia with history of diverticulosis and tubular adenomatous sigmoid polyps -No acute indication for RBC transfusion. Outpatient follow-up with restaurant busser, Dr. Rodriguez in 2 years with repeat colonoscopy Type 2 diabetes -Consistent carbohydrate diet. Insulin sliding scale - increase levemir to 20 units qhs, worsening hyperglycemia 2/2 steroid use Acute kidney injury - Resolved s/p IVF, Cr normalized - Avoid nephrotoxins. Renally dose all medications Lactic acidosis -IV fluids. Serial lactic acid until its normal. -if pro-calcitonin is elevated, start him. Antibiotic therapy DVT prophylaxis. Lovenox 0.5 mg/kg q12h DISCHARGE MEDICATIONS: Please see below. ALLERGIES: Please see below. PHYSICAL EXAMINATION ON DISCHARGE: VITAL SIGNS: please see below General: NAD, comfortable HEENT: PERRLA, EOMI, sclerae clear Neck: supple, normal ROM, no JVD Respiratory: reduced air entry bilaterally at bases, no wheeze, no rales, no crackles CVS: RRR, normal S1, S2, no murmurs Abdo: soft, no masses, no hepatosplenomegaly, BS+, no rebound tenderness Extremities: no edema, pulses 2+ MSK: no joint deformities, normal ROM Neuro: no focal neuro deficits, moving all 4 extremities, CN2-12 intact. Strength 5/5 in all 4 extremities. No nystagmus. Psych: calm, cooperative, AAO x 3 LABORATORY DATA: Please see below. IMAGING: CXR (12/06/20) The heart is mildly enlarged. Monitoring electrodes and oxygen delivery tubing are seen. There is some fissural thickening in the minor fissure but no royal pleural effusion is seen. Interstitial markings are prominent diffusely. This is es sentially unchanged. This may be chronic interstitial fibrosis.. IMPRESSION: Mild cardiac enlargement. Prominent interstitial markings question fibrosis. No focal infiltrate. CXR (12/09/20): 1. Cardiomegaly with left atrial and ventricular enlargement no royal edema or definite effusion. 2. No dense consolidation. There is underlying fibrosis with some pattern of increased peripheral markings present. Some fissural thickening for the right minor fissure but no gross effusion identified. Somewhat limited lordotic portable exam. PROGNOSIS: good ACTIVITY: as tolerated DIET: consistent carbohydrate DISCHARGE PLAN: DC home with home health DISCHARGE INSTRUCTIONS: 1. f/u with PCP 3-5 days 2. Please take your medications as prescribed 3. if you develop worsening shortness of breath, fevers, chills, chest pain, bleeding, fall or otherwise worsening of your symptoms, please call 911 or return to the nearest emergency room. DISCHARGE CONDITION: Stable TIME SPENT ON DISCHARGE: 35 minutes Vital Signs/I&Os Vital Signs Date Time Temp Pulse Resp B/P (MAP) Pulse Ox O2 Delivery O2 Flow Rate FiO2 12/10/20 14:00 95.8 65 18 151/65 (93) 93 Nasal Cannula 1.0 I&O- Last 24 Hours up to 6 AM 12/10/20 06:00 Intake Total 1210 ml Output Total 2100 ml Balance -890 ml Laboratory Data Labs 24H Laboratory Tests 2 12/09/20 16:25: Bedside Glucose (Misc Panel) 420H 12/09/20 20:22: Bedside Glucose (Misc Panel) 369H 12/10/20 04:45: Bedside Glucose (Misc Panel) 202H 12/10/20 06:18: Immature Granulocyte % (Auto) 0.8, Neutrophils (%) (Auto) 71.4H, Lymphocytes (%) (Auto) 17.7L, Monocytes (%) (Auto) 9.9H, Eosinophils (%) (Auto) 0.1, Basophils (%) (Auto) 0.1, Neutrophils # (Auto) 7.2, Lymphocytes # (Auto) 1.8, Monocytes # (Auto) 1.0H, Eosinophils # (Auto) 0.0, Basophils # (Auto) 0.0, Nucleated Red Blood Cells % (auto) 0.0, Prothrombin Time 16.1H, Prothromb Time International Ratio 1.26, Activated Partial Thromboplast Time 30.9, Fibrinogen 375, D-Dimer, Quantitative 1383.37H, Anion Gap 8, Glomerular Filtration Rate 57.7, Calcium Level 8.5L, Magnesium Level 2.1, Ferritin 107, Total Bilirubin 0.5, Direct Bilirubin 0.2, Aspartate Amino Transf (AST/SGOT) 10, Alanine Aminotransferase (ALT/SGPT) 20, Alkaline Phosphatase 64, Lactate Dehydrogenase 295H, Total Creatine Kinase 28, Troponin I < 0.02, NU-[id number]-Type Natriuretic Peptide 713H, Total Protein 6.6, Albumin 3.1L, Albumin/Globulin Ratio 0.9L, Procalcitonin <0.05 12/10/20 11:59: Bedside Glucose (Misc Panel) 268H CBC/BMP Laboratory Tests 12/10/20 06:18 FSBS Laboratory Tests Test 12/09/20 16:25 12/09/20 20:22 12/10/20 04:45 12/10/20 11:59 Range/Units Bedside Glucose (Misc Panel) 420 369 202 268 83-110 MG/DL Microbiology Microbiology 12/06/20 Blood Culture - Preliminary, Resulted No Growth after 72 hours. All specime... 12/06/20 Blood Culture - Preliminary, Resulted No Growth after 72 hours. All specime... 12/06/20 Respiratory Virus Panel (PCR) ([facility]) - Final, Complete SARS-CoV-2 (COVID 19) Discharge Medications Scheduled Amlodipine Besylate (Amlodipine Besylate) 2.5 Mg Tab, 2.5 MG PO DAILY, (Reported) Aspirin (Aspirin EC) 81 Mg Tablet.dr, 81 MG PO DAILY, (Reported) Calcium Carbonate/Vitamin D3 (Calcium 600-Vit D3 800 Tablet) 1 Tab Tab, 1 TAB PO BID, (Reported) Cyanocobalamin (Vitamin B-12) (Vitamin B-12) 1,000 Mcg Tab, 1,000 MCG PO DAILY, (Reported) Esomeprazole Magnesium (Esomeprazole Magnesium) 40 Mg Cap, 40 MG PO DAILY, (Reported) Ferrous Sulfate (Ferrous Sulfate) 325 Mg Tab, 325 MG PO DAILY, (Reported) Fluticasone Propion/Salmeterol (Advair Hfa 115-21 Mcg Inhaler) 12 Gm Hfa.aer.ad, 2 PUFF INH BID, (Reported) Furosemide (Furosemide) 40 Mg Tab, 40 MG PO DAILY, (Reported) Glipizide (Glipizide Xl) 10 Mg Tab.er.24, 10 MG PO BID, (Reported) Insulin Glargine,Hum.rec.anlog (Toujeo Solostar) 300 Unit/Ml Inj, 20 UNIT SC QHS Losartan Potassium (Losartan Potassium) 25 Mg Tab, 25 MG PO DAILY, (Reported) Metformin HCl (Metformin HCl) 1,000 Mg Tab, 1,000 MG PO BID, (Reported) Metoprolol Tartrate (Metoprolol Tartrate) 100 Mg Tab, 100 MG PO BID, (Reported) Potassium Chloride (Potassium Chloride) 20 Meq Tab.er.prt, 1 TAB PO DAILY Prednisone (Prednisone) 10 Mg Tablet, 10 MG PO TAPER Take 4 tabs daily x 3 days, then 3 tabs daily x 3 days, then 2 tabs daily x 3 days, then 1 tab daily x 3 days and stop Rosuvastatin Calcium (Crestor) 10 Mg Tablet, 5 MG PO DAILY Sitagliptin Phosphate (Januvia) 100 Mg Tab, 100 MG PO DAILY, (Reported) Scheduled PRN metroNIDAZOLE (metroNIDAZOLE) 55 Gm Gel.w.pump, 1 DOSE TOP DAILY PRN for ROSACE A, (Reported) Allergies Coded Allergies: canagliflozin (Verified Allergy, Severe, CAUSED DIFFICULTY BREATHING AND ELEVATED GLUCOSE, 12/06/20) SARABJIT RODRIGUEZ MD Dec 10, 2020 16:00
[2020-12-10] MEDS ORDERED: TOUJ1.2I SC (16:08)
[2020-12-10] MEDS ORDERED: POTA20TA6 PO (16:08)
[2020-12-10] MEDS ORDERED: CRES10TA PO (16:08)
[2020-12-10] MEDS ORDERED: PRED10TA2 PO (16:08)
== END 2020-12-10 17:35 | disposition home health service (06) | DRG 178 ==
LOC: M ED 11:03 → M ED INP 12:52 → M 4MAIN 14:29
PROVIDERS: ADMIT General Practice; ATTEND Family Medicine
PROC: XW033E5 Introduction of Remdesivir Anti-infective into Peripheral Vein, Percutaneous Approach, New Technology Group 5 (ICD-10-PCS; principal; 2020-12-06)
PROC: 3E0333Z Introduction of Anti-inflammatory into Peripheral Vein, Percutaneous Approach (ICD-10-PCS; 2020-12-06)
DX: U07.1 COVID-19 (principal); N17.9 Acute kidney failure, unspecified; E87.2 Acidosis; E11.9 Type 2 diabetes mellitus without complications; I10 Essential (primary) hypertension; J45.909 Unspecified asthma, uncomplicated; D50.9 Iron deficiency anemia, unspecified; R09.02 Hypoxemia; K57.90 Diverticulosis of intestine, part unspecified, without perforation or abscess without bleeding; Z86.010 Personal history of colon polyps; Z87.891 Personal history of nicotine dependence; Z79.82 Long term (current) use of aspirin; Z79.84 Long term (current) use of oral hypoglycemic drugs; Z79.899 Other long term (current) drug therapy; Z88.8 Allergy status to other drugs, medicaments and biological substances